=== PATIENT | female | born 1980 | race Caucasian/White ===

== ENCOUNTER 2020-11-29 11:49 | Emergency (ER) | payer OTHER ==
[2020-11-29 12:26] LABS: HEMOGLOBIN 14.9 gm/dl (12.3-15.3); RED BLOOD COUNT 5.82 M/UL (4.00-5.10); WHITE BLOOD COUNT 7.6 K/UL (4.5-11.0)
[2020-11-29 13:06] LABS: BUN/CREATININE RATIO 9 (0-10)
[2020-12-05] MEDS ORDERED: BENTYL 20MG TAB20 MG PO (10:43)
[2020-12-05] MEDS ORDERED: ZOLOFT100 MG PO (10:44)
[2020-12-05] MEDS ORDERED: ZOFRAN 4 MG TAB4 MG PO (10:44)
== END 2020-11-29 14:31 | disposition home or self-care (01) ==
LOC: ER1 11:49
PROVIDERS: Emergency Medicine
DX: R07.2 Precordial pain (principal)
CPT/HCPCS: 71045; 80053; 82550; 82553; 83874; 83880; 84484; 85025; 93005; 96374; 99285; J2405; Q9967

== ENCOUNTER 2020-12-01 17:11 | Emergency (ER) | payer OTHER ==
[2020-12-01 18:23] LABS: RED BLOOD COUNT 6.13 M/UL (4.00-5.10)
[2020-12-01 18:39] LABS: BUN/CREATININE RATIO 10 (0-10)
[2020-12-01] MEDS ORDERED: ZOFRAN4 MG PO (20:11)
[2020-12-01] MEDS ORDERED: BENTYL 20MG TAB20 MG PO (20:11)
[2020-12-05] MEDS ORDERED: BENTYL 20MG TAB20 MG PO (10:43)
[2020-12-05] MEDS ORDERED: ZOFRAN 4 MG TAB4 MG PO (10:44)
[2020-12-05] MEDS ORDERED: ZOLOFT100 MG PO (10:44)
== END 2020-12-01 20:45 | disposition home or self-care (01) ==
LOC: ER1 17:11
PROVIDERS: Physician Assistant Medical
DX: R10.84 Generalized abdominal pain (principal); R11.2 Nausea with vomiting, unspecified; R19.7 Diarrhea, unspecified; F17.210 Nicotine dependence, cigarettes, uncomplicated
CPT/HCPCS: 71045; 80053; 81001; 82150; 82550; 82553; 83605; 83690; 83874; 84484; 84703; 85025; 87040; 93005; 96374; 96375; 99284; J2270; J2405; J7030; Q9967

== ENCOUNTER → 2020-12-05 | Outpatient (CLI) | payer OTHER ==
[~2020-12-05] MED LIST: BENTYL 20MG TAB20 MG PO; DITROPAN 5 MG TA5 MG PO; DOCUSATE SODIU250 MG PO; HYDROCODONE-AC1 EACH PO; IBUPROFEN600 MG PO; ZOFRAN 4 MG TAB4 MG PO; ZOFRAN4 MG PO; ZOLOFT100 MG PO
[2020-12-05 10:44] LABS: HEMOGLOBIN 14.5 gm/dl (12.3-15.3); RED BLOOD COUNT 5.7 M/UL (4.00-5.10); WHITE BLOOD COUNT 7.6 K/UL (4.5-11.0)
[2020-12-05 11:21] LABS: BUN/CREATININE RATIO 10 (0-10)
== END ==
LOC: OPSV2 09:00
PROVIDERS: Anesthesiology; Obstetrics & Gynecology
DX: Z01.812 Encounter for preprocedural laboratory examination (principal); N93.9 Abnormal uterine and vaginal bleeding, unspecified; K52.9 Noninfective gastroenteritis and colitis, unspecified
CPT/HCPCS: 80048; 81001; 85025

== ENCOUNTER 2020-12-13 07:34 | Day surgery (SDC) | payer OTHER ==
[~2020-12-13] VITALS: Ht 167.6 cm; Wt 104.3 kg
[~2020-12-13 07:34] MED LIST changes: -DITROPAN 5 MG TA5 MG PO; -DOCUSATE SODIU250 MG PO; -HYDROCODONE-AC1 EACH PO; -IBUPROFEN600 MG PO
[2020-12-14] MEDS ORDERED: DOCUSATE SODIU250 MG PO (08:19)
[2020-12-14] MEDS ORDERED: IBUPROFEN600 MG PO (08:19)
[2020-12-14] MEDS ORDERED: HYDROCODONE-AC1 EACH PO (08:19)
[2020-12-14] MEDS ORDERED: DITROPAN 5 MG TA5 MG PO (08:19)
== END 2020-12-14 10:13 | disposition home or self-care (01) ==
LOC: OR 07:34 → MED SURG 4 14:55 → OR 12-14 10:13
DX: D25.9 Leiomyoma of uterus, unspecified (principal); N87.1 Moderate cervical dysplasia; N83.8 Other noninflammatory disorders of ovary, fallopian tube and broad ligament; F32.9 Major depressive disorder, single episode, unspecified; F17.210 Nicotine dependence, cigarettes, uncomplicated; Z79.899 Other long term (current) drug therapy
CPT/HCPCS: 84703; C1769; J0690; J1100; J2001; J2250; J2405; J2704; J2710; J2795; J3010; J7120

== ENCOUNTER → 2022-02-28 | Outpatient (CLI) | payer OTHER ==
[~2022-02-28] MED LIST changes: +DITROPAN 5 MG TA5 MG PO; +DOCUSATE SODIU250 MG PO; +HYDROCODONE-AC1 EACH PO; +IBUPROFEN600 MG PO
== END ==
LOC: MAMO 08:30
DX: Z12.31 Encounter for screening mammogram for malignant neoplasm of breast (principal)
CPT/HCPCS: 77063; 77067